=== PATIENT | female | born 1970 | race Caucasian/White ===

== ENCOUNTER 2019-01-31 21:03 | Emergency (ER) | payer MEDICAID | END 2019-01-31 23:37 | disposition home or self-care (01) | LOC: ED 21:03 ==

== ENCOUNTER 2019-03-26 16:34 | Emergency (ER) | payer MEDICAID ==
[~2019-03-26] VITALS: Ht 152.4 cm; Wt 86.2 kg
[2019-03-26 17:01] VITALS: Ht 152.4 cm; Wt 86.2 kg
[2019-03-26 19:21] VITALS: BP 108/75
== END 2019-03-26 19:21 | disposition home or self-care (01) ==
LOC: ED 16:34
DX: R21 Rash and other nonspecific skin eruption (principal); L29.9 Pruritus, unspecified
CPT/HCPCS: J1200

== ENCOUNTER 2020-03-20 11:38 | Inpatient (IN) | payer MEDICAID, SELFPAY ==
[~2020-03-20] VITALS: Ht 160 cm; Wt 72.6 kg
[2020-03-20 11:42] VITALS: Ht 160 cm; Wt 72.6 kg
[2020-03-20 13:13] LABS: PLATELET COUNT 269 x10^3mcL (130-400); RED CELL DISTRIBUTION WIDTH 14.1 % (11.5-14.5)
[2020-03-20 13:28] LABS: CALCIUM 8.2 mg/dL (8.5-10.1); CARBON DIOXIDE 24.4 mmol/L (21-32); CHLORIDE SERUM 103 mmol/L (98-107); CREATININE SERUM 0.5 mg/dL (0.6-1.0); GFR1 > 60 mL/min; GLUCOSE SERUM 95 mg/dL (74-106); POTASSIUM SERUM 3.6 mmol/L (3.5-5.1); SODIUM SERUM 139 mmol/L (136-145)
[2020-03-20 13:32] LABS: ALBUMIN 2.9 g/dL (3.4-5.0); ALKALINE PHOSPHATASE 81 U/L (46-116); ALT/SGPT 68 U/L (14-59); AST/SGOT 74 U/L (15-37); BILIRUBIN TOTAL 0.4 mg/dL (0.20-1.00); C REACTIVE PROTEIN 10.5 mg/dL (<=0.9); LACTIC DEHYDROGENASE (LDH) 352 U/L (100-190); TOTAL PROTEIN, SERUM 7.4 g/dL (6.4-8.2)
[2020-03-20 14:33] LABS: CHOLESTEROL/HDL RATIO 3.5
[2020-03-20 14:38] LABS: T3 TOTAL 1.24 ng/mL
[2020-03-20 15:25] LABS: FREE T4 0.96 ng/dL (0.76-1.46); T4(THYROXINE) 8.4 ug/dL (4.7-13.3)
[2020-03-20 15:39] LABS: microscopic required? YES; urine erythrocyte NEGATIVE (NEGATIVE)
[2020-03-20 18:27] VITALS: BP 102/70
[2020-03-20 20:00] VITALS: BP 95/67
[2020-03-21 06:20] VITALS: BP 102/73
[2020-03-21 07:38] LABS: CALCIUM 8.2 mg/dL (8.5-10.1); CARBON DIOXIDE 27.3 mmol/L (21-32); CHLORIDE SERUM 104 mmol/L (98-107); CREATININE SERUM 0.6 mg/dL (0.6-1.0); GFR1 > 60 mL/min; GLUCOSE SERUM 92 mg/dL (74-106); PHOSPHOROUS 3.1 mg/dL (2.5-4.9); POTASSIUM SERUM 3.4 mmol/L (3.5-5.1); SODIUM SERUM 141 mmol/L (136-145)
[2020-03-21 07:45] LABS: BASOPHIL % 0.4 % (0-2); PLATELET COUNT 295 x10^3mcL (130-400)
[2020-03-21 18:24] VITALS: BP 104/66
[2020-03-21 21:40] VITALS: BP 106/74
[2020-03-22 05:31] VITALS: BP 108/72
[2020-03-22 05:36] VITALS: BP 108/72
[2020-03-22 06:46] LABS: PLATELET COUNT 369 x10^3mcL (130-400); RED CELL DISTRIBUTION WIDTH 13.2 % (11.5-14.5)
[2020-03-22 06:56] LABS: BASOPHIL % 0 % (0-2)
[2020-03-22 06:57] LABS: CALCIUM 8.6 mg/dL (8.5-10.1); CARBON DIOXIDE 27.5 mmol/L (21-32); CHLORIDE SERUM 102 mmol/L (98-107); CREATININE SERUM 0.6 mg/dL (0.6-1.0); GFR1 > 60 mL/min; GLUCOSE SERUM 104 mg/dL (74-106); POTASSIUM SERUM 3.5 mmol/L (3.5-5.1); SODIUM SERUM 139 mmol/L (136-145)
[2020-03-22 07:15] VITALS: BP 100/60
[2020-03-22 08:21] LABS: C REACTIVE PROTEIN 13.1 mg/dL (<=0.9)
[2020-03-22 14:02] VITALS: BP 100/60
[2020-03-22 21:42] VITALS: BP 105/68
[2020-03-23 05:26] VITALS: BP 106/67
[2020-03-23 07:23] LABS: RED CELL DISTRIBUTION WIDTH 12.9 % (11.5-14.5)
[2020-03-23 07:26] LABS: BASOPHIL % 0 % (0-2); PLATELET COUNT 406 x10^3mcL (130-400)
[2020-03-23 07:54] LABS: C REACTIVE PROTEIN 11.6 mg/dL (<=0.9); CALCIUM 8.4 mg/dL (8.5-10.1); CARBON DIOXIDE 26.6 mmol/L (21-32); CHLORIDE SERUM 101 mmol/L (98-107); CREATININE SERUM 0.5 mg/dL (0.6-1.0); GFR1 > 60 mL/min; GLUCOSE SERUM 108 mg/dL (74-106); PHOSPHOROUS 2.9 mg/dL (2.5-4.9); POTASSIUM SERUM 3.5 mmol/L (3.5-5.1); SODIUM SERUM 138 mmol/L (136-145)
[2020-03-23 08:21] VITALS: BP 110/67
[2020-03-23 13:30] VITALS: BP 119/72
[2020-03-23 17:20] VITALS: BP 107/69
[2020-03-23 19:30] VITALS: BP 114/71
[2020-03-24 06:19] VITALS: BP 104/70
[2020-03-24 06:21] LABS: CALCIUM 8.7 mg/dL (8.5-10.1); CARBON DIOXIDE 27.5 mmol/L (21-32); CHLORIDE SERUM 101 mmol/L (98-107); CREATININE SERUM 0.5 mg/dL (0.6-1.0); GFR1 > 60 mL/min; GLUCOSE SERUM 110 mg/dL (74-106); POTASSIUM SERUM 3.2 mmol/L (3.5-5.1); SODIUM SERUM 136 mmol/L (136-145)
[2020-03-24 06:34] LABS: BASOPHIL % 0.4 % (0-2); PLATELET COUNT 456 x10^3mcL (130-400); RED CELL DISTRIBUTION WIDTH 13.7 % (11.5-14.5)
[2020-03-24 08:00] VITALS: BP 110/71
[2020-03-24 12:10] VITALS: BP 106/72
[2020-03-24 16:30] VITALS: BP 102/74
== END 2020-03-24 22:11 | disposition home or self-care (01) | DRG 720 ==
LOC: ED 11:38 → DU 14:13
PROVIDERS: Emergency Medicine; ADMIT Student in an Organized Health Care Education/Training Program
DX: A41.89 Other specified sepsis (principal); J96.01 Acute respiratory failure with hypoxia; U07.1 COVID-19; E44.0 Moderate protein-calorie malnutrition; Z68.28 Body mass index [BMI] 28.0-28.9, adult; J12.89 Other viral pneumonia
CPT/HCPCS: 36600; 83880; 84439; 85378; 87804; G0378; J0456; J0696; J1650; J3535; J7040; J7050; J7060

== ENCOUNTER 2020-11-18 20:56 | Emergency (ER) | payer MEDICAID ==
[~2020-11-18] VITALS: Ht 152.4 cm; Wt 92.1 kg
[2020-11-18 21:19] VITALS: BP 115/70; Ht 152.4 cm; Wt 92.1 kg
== END 2020-11-18 23:04 | disposition home or self-care (01) ==
LOC: ED 20:56
DX: N76.0 Acute vaginitis (principal); E66.9 Obesity, unspecified; Z68.39 Body mass index [BMI] 39.0-39.9, adult; Z98.890 Other specified postprocedural states
CPT/HCPCS: 82962

== ENCOUNTER 2020-12-07 20:55 | Emergency (ER) | payer MEDICAID ==
[~2020-12-07] VITALS: Ht 147.3 cm; Wt 92.1 kg
[2020-12-07 21:11] VITALS: Ht 147.3 cm; Wt 92.1 kg
[2020-12-07 22:45] VITALS: BP 124/70
== END 2020-12-07 22:54 | disposition home or self-care (01) ==
LOC: ED 20:55
DX: L25.9 Unspecified contact dermatitis, unspecified cause (principal)
CPT/HCPCS: J2930; Q0163